=== PATIENT | male | born 1955 | race Caucasian/White ===

== ENCOUNTER → 2020-06-13 11:50 | Outpatient (BNVA) | payer MEDICARE, OTHER, SELFPAY | PROVIDERS: Family Provider Nurse Practitioner Family; PCP Nurse Practitioner Family; Visit Provider Nurse Practitioner Family | DX: Z12.5 Encounter for screening for malignant neoplasm of prostate (principal); Z79.899 Other long term (current) drug therapy; E11.59 Type 2 diabetes mellitus with other circulatory complications; I25.10 Atherosclerotic heart disease of native coronary artery without angina pectoris | CPT/HCPCS: 80053; 82043; 83036; G0103 ==

== ENCOUNTER → 2020-09-01 12:52 | Outpatient (BNVA) | payer MEDICARE, OTHER, SELFPAY | PROVIDERS: Family Provider Nurse Practitioner Family; PCP Nurse Practitioner Family; Visit Provider Dermatology | DX: D48.9 Neoplasm of uncertain behavior, unspecified (principal) | CPT/HCPCS: 88304 ==

== ENCOUNTER → 2020-09-13 11:05 | Outpatient (BNVA) | payer MEDICARE, OTHER, SELFPAY | PROVIDERS: Family Provider Nurse Practitioner Family; PCP Nurse Practitioner Family; Visit Provider Nurse Practitioner Family | DX: Z79.01 Long term (current) use of anticoagulants (principal); I10 Essential (primary) hypertension; E11.9 Type 2 diabetes mellitus without complications | CPT/HCPCS: 80053; 80061; 83036; 85007; 85027 ==

== ENCOUNTER 2020-10-10 09:53 | Outpatient (CLI) | payer MEDICARE, OTHER, SELFPAY ==
--- NOTE | 2020-10-10 10:09 | XR_ITS ---
WS: [id number] LEFT KNEE: 3 VIEW(S) TECHNIQUE: AP, oblique(s) and lateral. HISTORY: M25.562 - Pain in left knee COMPARISON: None available. No fracture or dislocation. Very minimal narrowing of the medial and lateral compartments. No joint effusion. No soft tissue abnormality. XR/XR knee LT 3V* [id number] IMPRESSION: Mild narrowing of the medial and lateral compartments.
== END 2020-10-10 09:54 | disposition home or self-care (01) ==
LOC: RAD 10:01
PROVIDERS: PCP Nurse Practitioner Family; Visit Provider Nurse Practitioner Family
DX: M25.562 Pain in left knee (principal)
CPT/HCPCS: 73562

== ENCOUNTER 2020-10-20 06:40 | Outpatient (CLI) | payer MEDICARE, OTHER, SELFPAY ==
--- NOTE | 2020-10-20 07:15 | MR_ITS ---
WS: [id number] MRI LEFT KNEE HISTORY: M25.562 - Pain in left knee COMPARISON: LEFT knee radiographs 10/10/2020 Anterior cruciate ligament: Increased signal in the distal ligament. Loss of fibers distally and ther e is impingement upon the ACL between the condyle and the tibial plateau. Posterior cruciate ligament: Intact. Medial collateral ligament: Intact. There is increase fluid signal surrounding the MCL. Posterior lateral corner structures: Intact. Medial menisci: Abnormal signal throughout the posterior horn. There is significant fraying along the articular surfaces. There is no full-thickness fluid like signal. There is extrusion of the anterior horn from the joint space. Lateral meniscus: Intrasubstance degeneration with no tears. Extensor mechanism: Distal quadriceps tendon and patellar tendons are intact. Fluid and soft tissue: Small joint effusion. There is a small lobulated Keith's cyst extending over l ength of 3.6 cm. Small loose bodies or debris within the Keith's cyst. Osseous and articular structures: Patellofemoral compartment: Mild narrowing of patellofemoral joint space. No marrow edema. Medial compartment: Mild narrowing medial compartment. Significant loss of cartilage with thinning an d fraying and increased signal. No marrow edema. Lateral compartment: Moderate to severe narrowing of the lateral compartment with loss of cartilage. Complete cartilage defect measuring 5 mm along the tibial plateau. Small fluid collection adjacent to the medial fibular head may be a small ganglion associated with th e popliteus tendon. MR/MR knee LT wo con* [id number] IMPRESSION: 1. Moderate to severe lateral compartment internal derangement and mild event planning intern al derangement of the medial compartment and patellofemoral joint spaces. 2. Incomplete tear distal ACL. 3. Abnormal signal throughout the posterior horn without full-thickness tear. Consistent with intrasubstance degeneration with an extruded anterior horn. 4. Small Keith's cyst and small joint effusion. 5.
== END 2020-10-20 06:41 | disposition home or self-care (01) ==
LOC: RADSHAW 06:46
PROVIDERS: PCP Nurse Practitioner Family; Visit Provider Nurse Practitioner Family
DX: M23.8X2 Other internal derangements of left knee (principal); S83.512A Sprain of anterior cruciate ligament of left knee, initial encounter; X58.XXXA Exposure to other specified factors, initial encounter; M71.22 Synovial cyst of popliteal space [Baker], left knee; M25.462 Effusion, left knee
CPT/HCPCS: 73721

== ENCOUNTER → 2020-11-01 11:15 | Outpatient (BNVA) | payer MEDICARE, OTHER, SELFPAY | PROVIDERS: PCP Nurse Practitioner Family; Referring Provider Nurse Practitioner Family; Visit Provider Orthopaedic Surgery | DX: M17.12 Unilateral primary osteoarthritis, left knee (principal) | CPT/HCPCS: 73560; 73565 ==

== ENCOUNTER → 2020-12-13 09:04 | Outpatient (BNVA) | payer MEDICARE, OTHER, SELFPAY | PROVIDERS: PCP Nurse Practitioner Family; Visit Provider Nurse Practitioner Family | DX: I10 Essential (primary) hypertension (principal); E55.9 Vitamin D deficiency, unspecified; R06.00 Dyspnea, unspecified; E11.59 Type 2 diabetes mellitus with other circulatory complications; I25.10 Atherosclerotic heart disease of native coronary artery without angina pectoris; Z79.01 Long term (current) use of anticoagulants | CPT/HCPCS: 80053; 82306; 83036; 85025 ==

== ENCOUNTER → 2021-03-05 08:49 | Outpatient (BNVA) | payer MEDICARE, OTHER, SELFPAY | PROVIDERS: PCP Nurse Practitioner Family; Visit Provider Nurse Practitioner Family | DX: E11.59 Type 2 diabetes mellitus with other circulatory complications (principal); I25.10 Atherosclerotic heart disease of native coronary artery without angina pectoris; I10 Essential (primary) hypertension | CPT/HCPCS: 83036 ==

== ENCOUNTER → 2021-06-05 08:39 | Outpatient (BNVA) | payer MEDICARE, OTHER, SELFPAY | PROVIDERS: PCP Nurse Practitioner Family; Visit Provider Nurse Practitioner Family | DX: I10 Essential (primary) hypertension (principal); E55.9 Vitamin D deficiency, unspecified; E11.9 Type 2 diabetes mellitus without complications; Z79.01 Long term (current) use of anticoagulants | CPT/HCPCS: 80053; 82043; 82306; 83036; 85025 ==

== ENCOUNTER → 2021-09-05 09:12 | Outpatient (BNVA) | payer MEDICARE, OTHER, SELFPAY | PROVIDERS: PCP Nurse Practitioner Family; Visit Provider Nurse Practitioner Family | DX: E11.9 Type 2 diabetes mellitus without complications (principal); I10 Essential (primary) hypertension; Z79.01 Long term (current) use of anticoagulants; E55.9 Vitamin D deficiency, unspecified | CPT/HCPCS: 80053; 80061; 82306; 83036; 85025 ==

== ENCOUNTER → 2021-10-10 08:45 | Outpatient (BNVA) | payer MEDICARE, OTHER, SELFPAY | PROVIDERS: PCP Nurse Practitioner Family; Referring Provider Internal Medicine Cardiovascular Disease; Visit Provider Internal Medicine Cardiovascular Disease | DX: E11.59 Type 2 diabetes mellitus with other circulatory complications (principal); I25.10 Atherosclerotic heart disease of native coronary artery without angina pectoris; Z20.822 Contact with and (suspected) exposure to COVID-19 | CPT/HCPCS: 80048; 85025; 85610; 87635 ==

== ENCOUNTER 2021-10-16 07:31 | Outpatient (CLI) | payer MEDICARE, OTHER, SELFPAY ==
[2021-10-16] VITALS (15 sets, daily range): BP systolic 146–191; BP diastolic 89–113; PULSE 69–89; RESP 16–25; TEMP 37.4; O2SAT 94–97; BMI 43.6
--- NOTE | 2021-10-16 07:30 | XACV_ITS ---
Ht: 188 cm Wt: 156 kg BSA: 2.92 m2 Gender: Male : 1955 Any Known Allergies: No known allergies Exam Priority: Routine Procedure(s): Procedure Description: Diagnostic procedure Procedure Description: Left Heart Catheterization Procedure Description: Coronary Angiography CORNELKrystyna Jiménez; Diagnostic Cath Status: Elective Diagnostic Findings * Left Main has no disease. * Circumflex has no disease. * Distal Left Anterior Descending: minimal 30% stenosis, GABY: 3 flow. * Distal Right Coronary Artery: mild 40% stenosis, GABY: 3 flow. * Coronary angiography shows right dominance. Conclusions 1. There is mild coronary artery disease with two vessel disease. Recommendations * Continue current medical management and risk factor modification. Pressures Phase:Rest AO : 149 / 83 ( 111 ) @ 7:46:00 AM 152 / 88 ( 117 ) @ 7:54:00 AM 157 / 75 ( 113 ) @ 7:54:00 AM 161 / 86 ( 117 ) @ 7:56:00 AM LV : 147 / 6 / 17 @ 7:53:00 AM 153 / 5 / 18 @ 7:54:00 AM Valves Phase:DefaultPhase AV : 0.0 @ 10:04:49 AM AV Mean Gradient: 0.0 @ 10:04:49 AM Clinical Evaluation EBL: 5mL-10mL Procedural Details Procedure Consent Obtained. Pre-Procedure Time Out. Identified patient by full name and date of as verbalized by the patient/guarantor. Does the consent match the physician's order: Yes. Accurate & Complete Informed Consent: Yes. Inpatient/Outpatient History & Physical on Chart: Yes. If H&P is completed, is and addenduem needed: No; If yes, is the addendum complete: N/A. Visualize and Verify Site with Patient/Guarantor: N/A. Relevant Radiology Images available: N/A. Pre-op teaching completed and patient verbalized understanding. The risks, benefits, and alternatives of sedation and/or procedure were discussed by physician. The patient agrees to continue. Procedure started. Cardiovascular Instability: No. Correct patient, site and procedure confirmed by cath team. PERRLA. Strong, equal hand admissions coordinator bilaterally. Lungs clear x 5 lobes. IV Site on Arrival: 20 gauge in the right anticubital. IV Fluids: 0.9% NaCl at KVO. 0 mL infused prior to labor employment associate. Pre Procedural Pulses: bilateral dorsalis pedis was 3+. Pre Procedural Pulses: bilateral posterior tibial was 3+. Pre Procedural Pulses: bilateral radial was 3+. Oxygen started at 2liters/min via nasal canula. bilateral groins was prepped with chloroprep then draped in the usual sterile fashion. right radial was prepped with chloroprep then draped in the usual sterile fashion. Baseline sample Acquired. HR: 0 BPM. Physician arrived. Equipment: 6F - Radial. Cardiac Cath Pack. ACIST Manifold Kit Model BT 2000. Heparinized Saline (2 units/mL), 1000 mL bag. Kenya Patel RN will be circulating and Edward Kan will be animal technician. Physician scrubbed in. Immediate Pre-Procedure Time Out. Correct Patient: Yes; Correct Procedure: Yes; Correct Site: Yes; Correct Patient Position: Yes; Correct Supplies: Yes; Dried Flammable Prep: Yes; Blood Products Available: N/A;. Lidocaine 1% infiltrated to the right radial. Arterial access obtained. A 5 nigerien Agusto catheter in over wire. Multiple views taken of left coronary artery. Catheter redirected to the RCA. EDP Sample taken: LV 147/6,17; HR: 54 BPM; SpO2: 97%. Pullback taken: LV 153/5,18; AO 152/88(117); Mean: 0mmHg, Peak to Peak: 0mmHg, SEP: 6sec/min; HR: 72 BPM; SpO2: 97%. Catheter removed over the exchange wire. A 5 nigerien JR4 catheter in over wire. Multiple views taken of right coronary artery. Catheter removed over the exchange wire. Physician scrubbed out. A TR Band was successful obtaining hemostatsis at the Right Radial artery insertion site. TR band placed. Hemostasis obtained. Post Procedure: Pulses reassessed and unchanged. PERRLA. Strong, equal hand admissions coordinator bilaterally. No VTE prophylaxis required. Medication's Wasted: Lidocaine 1% = 16 mL. Medication's Wasted: Nitro = 49.8 mg. Medication's Wasted: Heparin = 1000 units. Medication's Wasted: Other = versed 1 mg. Medication's Wasted: Other = fentanyl 50 mcg. Total IV fluids: 43 mL. Contrast type used: Visipaque 320 mgI/mL, 500 mL bottle. Complications: none. Estimated blood loss: 5mL-10mL. Responsiveness - Normal response to verbal stimuli; alert and oriented, PERRLA. Airway - Unaffected, no intervention required; spontaneous ventilation. Circulation: W/N/L, pulses unchanged. Nausea/Vomiting: No. Procedure completed. Post-op diagnosis: non obstructive CAD. Patient transferred by wheelchair to CPRU. Vital chart was stopped. Access Site Site: Right Radial artery Sheath Size: 6 Fr Hemostasis Method: TR Band Hemostasis Success: Successful Procedure Medications Start: 9:31 AM Stop: 9:31 AM Medication: Versed Amount: 1 mg Route: I.V. Start: 9:31 AM Stop: 9:31 AM Medication: Fentanyl Amount: 50 mcg Route: I.V. Start: 9:43 AM Stop: 9:43 AM Medication: Nitrogylcerin Amount: 200 mcg Route: I.A. Start: 9:45 AM Stop: 9:45 AM Medication: Heparin Amount: 5000 units Route: I.V. I, the attending physician, have reviewed and verified all procedure medications. Yes, all medications given per verbal order History/Risk Factors Hypertension: Yes Dyslipidemia: Yes Peripheral Arterial Disease (PAD): No Myocardial Infarction (MN): No Obesity: No Renal Disease: No Prior Interventions PCI: No CABG: No Valve Surgery: No Report Signatures Finalized by Chun Jiménez MD on 10/23/2021 04:59 PM
[2021-10-16] MEDS: diphenhydrAMINE 50 mg Capsule PO (08:09)
[2021-10-16 08:50] LABS: INR 1.04 (0.8-1.2)
--- NOTE | 2021-10-16 09:33 | W.PM.OPSUD ---
Surgery/Procedure H&P Update DATE OF PROCEDURE: October 16, 2021 DATE H&P PERFORMED: 09/18/21 H&P UPDATE INFORMATION: I have reviewed H&P completed within last 30 days, I have examined patient prior to procedure and No changes to prior documentation PREOP DIAGNOSIS: Worsening of chest pain along with shortness of breath suspicious for angin PLANNED PROCEDURE: Operation Date: 10/16/21 08:30 Proposed Procedures p Cardiac Catheterization(Left) - Chun Jiménez MD PATIENT REASSESSED PRIOR TO SEDATION, WITH NO CHANGE NOTED: Yes PHYSICAL EXAM: oriented x 3 and clear to auscultation bilaterally AIRWAY EVAL/ANESTHESIA PLAN: ASA II and Risks, benefits & alternatives of sedation and/or procedure discussed ADDITIONAL INFORMATION: Patient has been explained and alternative for the procedure. Patient has been explained risk for stroke contrast-induced nephropathy temporary permanent dialysis major minor bleed transfusion urgent emergent vascular bypass surgery. He is a candidate for DAPT. He would like to proceed with it
--- NOTE | 2021-10-16 10:16 | SUR.PHASEII ---
POST CATH NOTE Recievied patient from labor mediator. Status post cardiac catheterization via the right radial approach. TR band to access site- free of hematoma formation. Verbal instuction went over with /patient. Verbalized understanding. Will continue to monitor. Vitals and site assessments per flowsheets in PCS.
--- NOTE | 2021-10-16 10:22 | SUR.PHASEII ---
POST OP FLUID RATE MD VERBAL ORDER FOR POST CATH FLUIDS AT 125 ML/HR UNTIL DISCHARGE. Noted.
--- NOTE | 2021-10-16 12:10 | SUR.PHASEII ---
TR BAND DEFLATED Band deflated per protocol. No hematoma formation noted.
== END 2021-10-16 14:03 | disposition home or self-care (01) ==
PROVIDERS: PCP Nurse Practitioner Family; Visit Provider Internal Medicine Cardiovascular Disease
DX: I25.10 Atherosclerotic heart disease of native coronary artery without angina pectoris (principal); Z79.82 Long term (current) use of aspirin; I48.91 Unspecified atrial fibrillation; E11.9 Type 2 diabetes mellitus without complications; I10 Essential (primary) hypertension; E78.5 Hyperlipidemia, unspecified; E55.9 Vitamin D deficiency, unspecified
CPT/HCPCS: 36415; 85610; 93452; C1769; C1887; C1894; J1644; J2250; J3010; J3490; J7030; Q0163; Q9967

== ENCOUNTER → 2022-03-11 08:39 | Outpatient (BNVA) | payer MEDICARE, OTHER, SELFPAY | PROVIDERS: PCP Nurse Practitioner Family; Visit Provider Nurse Practitioner Family | DX: I10 Essential (primary) hypertension (principal); M17.12 Unilateral primary osteoarthritis, left knee; E11.9 Type 2 diabetes mellitus without complications; E78.5 Hyperlipidemia, unspecified; Z79.01 Long term (current) use of anticoagulants | CPT/HCPCS: 80053; 80061; 82043; 83036; 85025 ==

== ENCOUNTER 2022-03-14 09:03 | Outpatient (CLI) | payer MEDICARE, OTHER, SELFPAY ==
--- NOTE | 2022-03-14 09:10 | XR_ITS ---
WS: [id number] XR knee LT 3V* [id number] REASON FOR EXAM: M17.12 - Unilateral primary osteoarthritis, left knee FINDINGS: No fracture or focal bone lesion. Mild narrowing of the medial and lateral knee joint spaces. Mild subchondral sclerosis in the joint s paces with small marginal osteophytes. Mild narrowing of the patellofemoral joint space with subchondral sclerosis of the patella and small marginal osteophytes. XR/XR knee LT 3V* [id number] IMPRESSION: Mild/moderate osteoarthritis of the left knee.
== END 2022-03-14 09:04 | disposition home or self-care (01) ==
LOC: RAD 09:06
PROVIDERS: PCP Nurse Practitioner Family; Visit Provider Nurse Practitioner Family
DX: M17.12 Unilateral primary osteoarthritis, left knee (principal)
CPT/HCPCS: 73562

== ENCOUNTER → 2022-03-20 14:49 | Outpatient (BNVA) | payer MEDICARE, OTHER, SELFPAY | PROVIDERS: PCP Nurse Practitioner Family; Visit Provider Internal Medicine Cardiovascular Disease | DX: I48.19 Other persistent atrial fibrillation (principal); I25.10 Atherosclerotic heart disease of native coronary artery without angina pectoris; E11.59 Type 2 diabetes mellitus with other circulatory complications; I10 Essential (primary) hypertension; E78.49 Other hyperlipidemia; Z79.84 Long term (current) use of oral hypoglycemic drugs | CPT/HCPCS: 99214 ==

== ENCOUNTER → 2022-09-11 14:53 | Outpatient (BNVA) | payer MEDICARE, OTHER, SELFPAY | PROVIDERS: PCP Nurse Practitioner Family; Visit Provider Nurse Practitioner Family | DX: I48.19 Other persistent atrial fibrillation (principal); Z79.01 Long term (current) use of anticoagulants; I10 Essential (primary) hypertension; E11.59 Type 2 diabetes mellitus with other circulatory complications; Z79.84 Long term (current) use of oral hypoglycemic drugs; I25.10 Atherosclerotic heart disease of native coronary artery without angina pectoris | CPT/HCPCS: 99214 ==

== ENCOUNTER → 2022-09-23 11:27 | Outpatient (BNVA) | payer MEDICARE, OTHER, SELFPAY | PROVIDERS: PCP Nurse Practitioner Family; Visit Provider Nurse Practitioner Family | DX: E11.9 Type 2 diabetes mellitus without complications (principal); Z85.828 Personal history of other malignant neoplasm of skin; Z12.5 Encounter for screening for malignant neoplasm of prostate; E55.9 Vitamin D deficiency, unspecified; I10 Essential (primary) hypertension; E78.49 Other hyperlipidemia; Z79.01 Long term (current) use of anticoagulants | CPT/HCPCS: 80053; 80061; 82306; 83036; 85025; G0103 ==

== ENCOUNTER → 2023-03-21 09:50 | Outpatient (BNVA) | payer MEDICARE, OTHER, SELFPAY | PROVIDERS: PCP Nurse Practitioner Family; Visit Provider Internal Medicine Cardiovascular Disease | DX: I48.19 Other persistent atrial fibrillation (principal); Z79.01 Long term (current) use of anticoagulants; I10 Essential (primary) hypertension; E11.59 Type 2 diabetes mellitus with other circulatory complications; Z79.84 Long term (current) use of oral hypoglycemic drugs; I25.10 Atherosclerotic heart disease of native coronary artery without angina pectoris; E78.49 Other hyperlipidemia | CPT/HCPCS: 99214 ==

== ENCOUNTER → 2023-04-07 10:44 | Outpatient (BNVA) | payer MEDICARE, OTHER, SELFPAY | PROVIDERS: PCP Nurse Practitioner Family; Visit Provider Registered Nurse | DX: E11.9 Type 2 diabetes mellitus without complications (principal); I10 Essential (primary) hypertension; Z12.5 Encounter for screening for malignant neoplasm of prostate; Z86.010 Personal history of colon polyps; Z12.11 Encounter for screening for malignant neoplasm of colon | CPT/HCPCS: 80053; 82043; 83036; 85025; G0103 ==

== ENCOUNTER → 2023-04-25 10:01 | Outpatient (BNVA) | payer MEDICARE, OTHER, SELFPAY | PROVIDERS: PCP Nurse Practitioner Family; Visit Provider Dermatology | DX: L57.0 Actinic keratosis (principal); L21.8 Other seborrheic dermatitis; L91.8 Other hypertrophic disorders of the skin; L82.1 Other seborrheic keratosis; L82.0 Inflamed seborrheic keratosis; D18.01 Hemangioma of skin and subcutaneous tissue; Z85.828 Personal history of other malignant neoplasm of skin | CPT/HCPCS: 17000; 17003; 17110; 99213 ==

== ENCOUNTER → 2023-05-27 08:05 | Outpatient (BNVA) | payer MEDICARE, OTHER, SELFPAY | PROVIDERS: PCP Nurse Practitioner Family; Visit Provider Surgery | DX: Z12.11 Encounter for screening for malignant neoplasm of colon (principal) | CPT/HCPCS: 99024; 99203 ==

== ENCOUNTER 2023-07-09 06:39 | Day surgery (SDC) | payer MEDICARE, OTHER, SELFPAY ==
[2023-07-09 06:48] VITALS: BP 178/118; PULSE 95; RESP 18; TEMP 36.2; O2SAT 96
--- NOTE | 2023-07-09 06:59 | ANES.PREANE2 ---
Pre-Anesthetic Assessment Height/Weight: Height 1.88 m Weight 152.861 kg Preop Diagnosis: screening Operation Date: 07/09/23 07:30 Proposed Procedures p [id number] Colonoscopy z12.11(Not Applicable) - Willie Velazquez DO Familial anesthetic complications: none Was Beta Navid taken within 24 hours: N/A Was Clonidine taken within 24 hours: N/A Social No alcohol and No tobacco Airway Submandibular: within normal limits Cervical ROM: within normal limits Mallampati: Class II Dentition: full Pulmonary Exertional Dyspnea and Sleep Apnea CPAP CV/HEM Atrial Fibrillation and Hypertension None reported Hepatic None reported GI Gastroesophageal Reflux Disease Metabolic Diabetes Mellitus (type II), Hyperlipidemia and Morbid Obesity Musc/skel Lower Back Pain Neuropsych None reported Anesthetic Plan ASA status: 3 Anesthesia: MAC Risk of > 500 ml blood loss (7ml/kg in children): No Medications/Allergies Home Medications Medication Instructions Recorded Confirmed Last Taken Type cholecalciferol (vitamin D3) 50 50 mcg PO DAILY 05/30/20 07/04/23 07/08/23 History mcg (2,000 unit) capsule aspirin 81 mg tablet,delayed 81 mg PO DAILY 06/26/20 07/04/23 07/08/23 History release (Adult Low Dose Aspirin) omega-3 fatty acids 1,000 mg 1,000 mg PO BID 06/26/20 07/04/23 07/08/23 History capsule (Fish Oil Concentrate) vitamin B complex (B 1 tab PO DAILY 06/26/20 07/04/23 07/08/23 History Complex-Vitamin B12 tablet) nitroglycerin 0.4 mg sublingual 0.4 mg sublingual Q5M PRN chest 05/29/22 07/09/23 5 Years Ago Rx tablet (Nitrostat) pain #25 tabs ~07/09/18 lisinopril 10 mg tablet 10 mg PO DAILY #90 tabs 03/21/23 07/04/23 07/08/23 Rx glimepiride 2 mg tablet 2 mg PO BID 07/04/23 07/04/23 07/08/23 History irbesartan 300 mg tablet 300 mg PO DAILY 07/04/23 07/04/23 07/08/23 History isosorbide mononitrate 30 mg 30 mg PO DAILY 07/04/23 07/04/23 07/08/23 History tablet,extended release 24 hr metformin 1,000 mg tablet 100 mg PO BID 07/04/23 07/04/23 07/08/23 History pantoprazole 40 mg tablet,delayed 40 mg PO DAILY 07/04/23 07/04/23 07/08/23 History release rivaroxaban 20 mg tablet (Xarelto) 20 mg PO DAILY 07/04/23 07/04/23 07/06/23 History rosuvastatin 40 mg tablet 40 mg PO DAILY 07/04/23 07/04/23 07/08/23 History verapamil 300 mg capsule 24hr 300 mg PO DAILY 07/04/23 07/04/23 07/08/[address],ext[address]release Allergies Allergy/AdvReac Type Severity Reaction Status Date / Time No Known Allergies Allergy Verified 07/09/23 06:55 [facility] Anesthesia Medical History (Updated 05/27/23 @ 08:51 by Willie Velazquez DO) A-fib 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 mellitus Diabetes Diverticulitis History of nonmelanoma skin cancer HTN (hypertension) Hyperlipemia Vitamin D deficiency Surgical History (Updated 05/27/23 @ 08:51 by Willie Velazquez DO) History of esophagogastroduodenoscopy (EGD) Hx of cholecystectomy Hx of colonoscopy 10 years ago, No polyps found at last colonoscopy S/P appendectomy S/P cataract extraction Family History Father Cancer Prostate CA Mother Diabetes Social History Smoking and tobacco status: never smoked Alcohol intake: former Adopted: No Household members: spouse Housing: House Marital status: service: No Current occupational status: retired Data Anesthesia Cardiac Studies: No Data to Display
[2023-07-09] MEDS: sodium chloride 0.9% 1,000 ML 30 ML IV (07:08)
[2023-07-09 07:15] LABS: Glucose Point of Care 140 mg/dL (70-110)
--- NOTE | 2023-07-09 07:19 | PM.HP ---
Providers/Chief Complaint Primary Care Provider: [facility] Chief Complaint: Z12.11 History of Present Illness Ciro Wells is a 68 year old male Medications/Allergies Home Medications Medication Instructions Recorded Confirmed Last Taken Type cholecalciferol (vitamin D3) 50 50 mcg PO DAILY 05/30/20 07/04/23 07/08/23 History mcg (2,000 unit) capsule aspirin 81 mg tablet,delayed 81 mg PO DAILY 06/26/20 07/04/23 07/08/23 History release (Adult Low Dose Aspirin) omega-3 fatty acids 1,000 mg 1,000 mg PO BID 06/26/20 07/04/23 07/08/23 History capsule (Fish Oil Concentrate) vitamin B complex (B 1 tab PO DAILY 06/26/20 07/04/23 07/08/23 History Complex-Vitamin B12 tablet) nitroglycerin 0.4 mg sublingual 0.4 mg sublingual Q5M PRN chest 05/29/22 07/09/23 5 Years Ago Rx tablet (Nitrostat) pain #25 tabs ~07/09/18 lisinopril 10 mg tablet 10 mg PO DAILY #90 tabs 03/21/23 07/04/23 07/08/23 Rx glimepiride 2 mg tablet 2 mg PO BID 07/04/23 07/04/23 07/08/23 History irbesartan 300 mg tablet 300 mg PO DAILY 07/04/23 07/04/23 07/08/23 History isosorbide mononitrate 30 mg 30 mg PO DAILY 07/04/23 07/04/23 07/08/23 History tablet,extended release 24 hr metformin 1,000 mg tablet 100 mg PO BID 07/04/23 07/04/23 07/08/23 History pantoprazole 40 mg tablet,delayed 40 mg PO DAILY 07/04/23 07/04/23 07/08/23 History release rivaroxaban 20 mg tablet (Xarelto) 20 mg PO DAILY 07/04/23 07/04/23 07/06/23 History rosuvastatin 40 mg tablet 40 mg PO DAILY 07/04/23 07/04/23 07/08/23 History verapamil 300 mg capsule 24hr 300 mg PO DAILY 07/04/23 07/04/23 07/08/[address],ext.release Allergies Allergy/AdvReac Type Severity Reaction Status Date / Time No Known Allergies Allergy Verified 07/09/23 06:55 PFSH Acute PFSH: Medical History (Updated 05/27/23 @ 08:51 by Willie Velazquez DO) A-fib 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 mellitus Diabetes Diverticulitis History of nonmelanoma skin cancer HTN (hypertension) Hyperlipemia Vitamin D deficiency Surgical History (Updated 05/27/23 @ 08:51 by Willie Velazquez DO) History of esophagogastroduodenoscopy (EGD) Hx of cholecystectomy Hx of colonoscopy 10 years ago, No polyps found at last colonoscopy S/P appendectomy S/P cataract extraction Family History Father Cancer Prostate CA Mother Diabetes Social History Smoking and tobacco status: never smoked Alcohol intake: former Adopted: No Household members: spouse Housing: House Marital status: service: No Current occupational status: retired Vitals/I&O/Wt Last Vital Signs Temp 97.2 F L 07/09/23 06:48 Pulse 95 07/09/23 06:48 Resp 18 07/09/23 06:48 BP 178/118 07/09/23 06:48 Pulse Ox 96 07/09/23 06:48 O2 Del Method Room Air 07/09/23 06:48 A&P Assessment and plan (1) Encounter for screening for malignant neoplasm of colon: Plan Screening colonoscopy Attestations Medical Necessity Statement*: Home Coding Level of Care Code Acute Code for Chg Fwd Diagnoses Encounter for screening for malignant neoplasm of colon Z12.11
[2023-07-09 07:56] VITALS: BP 132/86; PULSE 86; RESP 12; TEMP 36.6; O2SAT 93
[2023-07-09 08:05] VITALS: BP 150/82; PULSE 82; RESP 14; O2SAT 98
[2023-07-09 08:15] VITALS: BP 160/96; PULSE 87; RESP 16; O2SAT 96
--- NOTE | 2023-07-09 08:30 | ANE.PACU2 ---
Inpatient post-anesthesia follow up: Airway intact: Yes Vital signs: Temperature 98 F Pulse Rate 87 Respiratory Rate 16 Blood Pressure 160/96 Pulse Oximetry 96 Oxygen Delivery Me thod Room Air Oxygen Flow Rate 4 Fraction of Inspir ed Oxygen Hydration adequate: Yes Nausea and vomiting: No Pain level: 1 Mental status: Baseline
== END 2023-07-09 08:30 | disposition home or self-care (01) ==
PROVIDERS: PCP Nurse Practitioner Family; Visit Provider Surgery
PROC: 0DJD8ZZ Inspection of Lower Intestinal Tract, Via Natural or Artificial Opening Endoscopic (ICD-10-PCS; CPT 45378; principal; 2023-07-09 07:30)
DX: Z12.11 Encounter for screening for malignant neoplasm of colon (principal); D12.3 Benign neoplasm of transverse colon; K57.30 Diverticulosis of large intestine without perforation or abscess without bleeding; Z79.82 Long term (current) use of aspirin; I48.91 Unspecified atrial fibrillation; I25.10 Atherosclerotic heart disease of native coronary artery without angina pectoris; E11.9 Type 2 diabetes mellitus without complications; I10 Essential (primary) hypertension; E78.5 Hyperlipidemia, unspecified; E55.9 Vitamin D deficiency, unspecified; G47.30 Sleep apnea, unspecified; K21.9 Gastro-esophageal reflux disease without esophagitis; E66.01 Morbid (severe) obesity due to excess calories; Z68.41 Body mass index [BMI] 40.0-44.9, adult
CPT/HCPCS: 36416; 45385; 82962; 88305; J2704; J7030

== ENCOUNTER → 2023-07-23 13:10 | Outpatient (BNVA) | payer MEDICARE, OTHER, SELFPAY | PROVIDERS: PCP Nurse Practitioner Family; Visit Provider Surgery | DX: Z09 Encounter for follow-up examination after completed treatment for conditions other than malignant neoplasm (principal); D12.6 Benign neoplasm of colon, unspecified; K57.90 Diverticulosis of intestine, part unspecified, without perforation or abscess without bleeding | CPT/HCPCS: 99213 ==

== ENCOUNTER → 2023-08-07 10:03 | Outpatient (BNVA) | payer MEDICARE, OTHER, SELFPAY | PROVIDERS: PCP Nurse Practitioner Family; Visit Provider Nurse Practitioner Family | DX: E11.9 Type 2 diabetes mellitus without complications (principal); E78.49 Other hyperlipidemia; I10 Essential (primary) hypertension; R53.83 Other fatigue | CPT/HCPCS: 80053; 80061; 83036; 85025 ==

== ENCOUNTER → 2023-11-05 09:36 | Outpatient (BNVA) | payer MEDICARE, OTHER, SELFPAY | PROVIDERS: PCP Nurse Practitioner Family; Visit Provider Nurse Practitioner Family | DX: I10 Essential (primary) hypertension (principal); E11.9 Type 2 diabetes mellitus without complications; R53.83 Other fatigue | CPT/HCPCS: 80053; 80061; 83036; 85025 ==

== ENCOUNTER → 2024-01-29 13:25 | Outpatient (BNVA) | payer MEDICARE, OTHER, SELFPAY | PROVIDERS: PCP Nurse Practitioner Family; Visit Provider Internal Medicine | DX: I10 Essential (primary) hypertension (principal); E11.59 Type 2 diabetes mellitus with other circulatory complications; I25.10 Atherosclerotic heart disease of native coronary artery without angina pectoris; I48.19 Other persistent atrial fibrillation; E78.49 Other hyperlipidemia; Z79.84 Long term (current) use of oral hypoglycemic drugs | CPT/HCPCS: 99214 ==

== ENCOUNTER → 2024-02-09 08:26 | Outpatient (BNVA) | payer MEDICARE, OTHER, SELFPAY | PROVIDERS: PCP Nurse Practitioner Family; Visit Provider Nurse Practitioner Family | DX: E11.9 Type 2 diabetes mellitus without complications (principal); R53.83 Other fatigue; R07.89 Other chest pain | CPT/HCPCS: 80061; 83036; 85025; 93005 ==

== ENCOUNTER → 2024-02-11 12:05 | Outpatient (BNVA) | payer MEDICARE, OTHER, SELFPAY | PROVIDERS: PCP Nurse Practitioner Family; Visit Provider Internal Medicine | DX: I10 Essential (primary) hypertension (principal); E11.59 Type 2 diabetes mellitus with other circulatory complications; Z79.84 Long term (current) use of oral hypoglycemic drugs; I25.10 Atherosclerotic heart disease of native coronary artery without angina pectoris; I48.19 Other persistent atrial fibrillation; E78.49 Other hyperlipidemia | CPT/HCPCS: 99214 ==

== ENCOUNTER 2024-02-19 06:50 | Outpatient (CLI) | payer MEDICARE, SELFPAY ==
[2024-02-19 06:58] VITALS: BMI 43.2
--- NOTE | 2024-02-19 07:03 | NMCV_ITS ---
NM rajinder perf SPECT r/s* [id number] Ciro Wells Age: 69 Gender: M : 1955 Exam Date: 02/19/2024 08:44 Ordering Phys: Hoang Johnston M.D ([email or web address]) Technologist: LOVE Parra Exam Location: [facility] Indications: SHORTNESS OF BREATH CHEST PAIN STRESS TEST Please see separate stress test report in [facility] for full findings IMAGE PROTOCOL Rest/Stress 1 Lexiscan Day Radiopharmaceutical Dose (mCi) Administration Site Administered by Rest: Tc-99m 10.9 IV LOVE Crocker Sestamibi Stress:Tc-99m 33.0 IV LOVE Crocker Sestamibi Rest: 19-Feb-2024 60 Discovery 630 Stress: 19-Feb-2024 30 Discovery 630 0.4mg Lexiscan. Images obtained in supine and prone position. SPECT RESULTS Technical Quality: Excellent Raw Data Analysis: Normal Image Corrections: No attenuation or motion correction applied Summed Stress Score: 11 Summed Rest Score: 5 Summed Difference Score: 6 PERFUSION FINDINGS There is a partially reversible, medium sized perfusion defect noted in apical and apical anterior guerrero. This is consistent with small sized area of prior infarct with medium sized area of nazanin-infarct ischemia. Medium to large sized areas of mostly fixed perfusion defect is seen in the inferolateral and inferior guerrero. This is consistent with moderate to large sized area of prior infarct with minimal nazanin-infarct ischemia and RCA and left circumflex artery territories FUNCTIONAL RESULTS (calculated via Gated SPECT) Stress Image LV EF (%): 63 Stress EDV (mL):188 TID: 1.06 Stress ESV (mL):69 FUNCTIONAL FINDINGS: There is normal left ventricular systolic function. IMPRESSIONS 1. Small area of prior infarct with medium sized area nazanin-infarct ischemia seen in the LAD territory. 2. Large sized area of medium to large sized areas of prior infarct with minimal nazanin-infarct ischemia seen in RCA and left circumflex artery territories. 3. LV systolic function is normal. Hoang Johnston MD (Electronically Signed) Final Date: 19 February 2024 11:42 S
--- NOTE | 2024-02-19 07:03 | ECG_ITS ---
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 Interpretive Statements NAME OF STUDY: LEXISCAN SESTAMIBI STRESS TEST INDICATION: [Chest Pain; Shortness of breath] Procedure: At the baseline, the blood pressure was 161/91 mmHg with a heart rate of 64 bpm. The electrocardiogram showed atrial fibrillation with no significant ST-T wave changes. The Lexiscan was infused over a period of 20 seconds. A total of 0.4 mg of Lexiscan was infused. The stress phase was continued for a total of 5 minutes. Heart rate was at the end of stress phase was 65 bpm and a blood pressure of 147/82 mmHg. The EKG at the peak infusion revealed atrial fibrillation with no significant ST-T wave changes. Sestamibi was injected 20 seconds after the Lexiscan infusion. Blood pressure at the end of recovery phase was 139/75 mmHg with a heart rate of 70 bpm. Conclusion: 1. Normal EKG response to Lexiscan infusion 2. No Lexiscan induced chest pain or cardiac arrhythmia. 3. Normal blood pressure and heart rate response. 4. Sestamibi/sestamibi perfusion scan pending; see separate report. Electronically Signed On 02-19-2024 13:23:51 CDT by Hoang Johnston M.D. [email or web address]
--- NOTE | 2024-02-19 07:15 | USCV_ITS ---
Ciro Wells Age: 69 Gender: M : 1955 Exam Date: 02/19/2024 07:01 Ordering Phys: Hoang Johnston M.D ([email or web address]) Technologist: Exam Location: [facility] [place] Indication: chest pain BP: 126 / 70 HR: 89 Rhythm: Sinus Technical Quality: Adequate MEASUREMENTS (Male / Female) Normal Values 2D ECHO LV Diastolic Diameter PLAX 5.4 cm 4.2 - 5.9 / 3.9 - 5.3 cm IVS Diastolic Thickness 1.4 cm 0.6 - 1.0 / 0.6 - 0.9 cm IVS Systolic Thickness 1.8 cm LVPW Diastolic Thickness 1.4 cm 0.6 - 1.0 / 0.6 - 0.9 cm LVPW Systolic Thickness 1.4 cm LVOT Diameter 2.0 cm LV Ejection Fraction 2D Teich 62.8 % LV Ejection Fraction MOD 2C 56.3 % LV Ejection Fraction 2C AL 54.0 % LA Diameter 5.0 cm RA Systolic Volume 4C AL 138.4 ml RA Systolic Volume 4C MOD 130.7 ml LA Sys Volume AL 161.6 cm cubed LA Sys Volume Index AL 55.6 cm cubed/m squared M-MODE LA Ao Ratio MM 1.3 MV E Point Septal Separation 1.5 cm AV Cusp Separation MM 2.6 cm DOPPLER AV Peak Velocity 120.0 cm/s LVOT Peak Velocity 83.0 cm/s AV Area Cont Eq vti 2.6 cm squared AV Area Cont Eq pk 2.2 cm squared MV Peak Velocity 110.0 cm/s MV Area PHT 5.1 cm squared Mitral E to A Ratio 4.2 TV Peak Velocity 221.0 cm/s TR Peak Velocity 252.0 cm/s TR Peak Gradient 25.4 mmHg TV Peak E Velocity 105.0 cm/s PV Peak Velocity 104.0 cm/s FINDINGS Left Ventricle Left ventricle is normal in size. LV systolic function is normal with EF 55 to 60%. No regional wall motion abnormalities are seen. Right Ventricle Normal in size and function Right Atrium Dilated. Left Atrium Dilated Mitral Valve Mild mitral annular calcification. Mild mitral regurgitation. Aortic Valve Structurally normal aortic valve. No significant stenosis or regurgitation. Tricuspid Valve Trace tricuspid regurgitation. Insufficient TR jet to evaluate RVSP. Pulmonic Valve Not well-visualized. Pericardium Normal Aorta Normal in size. IVC Appears to be normal CONCLUSIONS LV systolic function is normal with EF of 55 to 60%. Biatrial enlargement Mild mitral regurgitation Trace tricuspid regurgitation. Hoang Johnston MD (Electronically Signed) Final Date: 06 Mar 2024 20:16 S
[2024-02-19] MEDS: regadenoson 0.4 Mg/5 ml Syringe 0.400000000000000022 MG IVP (09:45)
[2024-02-19 09:55] VITALS: BP 137/72; PULSE 72
== END 2024-02-19 06:51 | disposition home or self-care (01) ==
LOC: RAD 06:50
PROVIDERS: PCP Nurse Practitioner Family; Visit Provider Internal Medicine
DX: R07.9 Chest pain, unspecified (principal); R06.02 Shortness of breath
CPT/HCPCS: 36415; 78452; 93017; 93306; 96374; A9500; J2785

== ENCOUNTER 2024-03-08 05:50 | Outpatient (CLI) | payer MEDICARE, OTHER, SELFPAY ==
[2024-03-08] VITALS (29 sets, daily range): BP systolic 121–181; BP diastolic 67–113; PULSE 52–81; RESP 13–23; TEMP 36.3–36.8; O2SAT 94–97; BMI 43.2
--- NOTE | 2024-03-08 06:00 | XACV_ITS ---
Exam Room: 2 Ht: 188 cm Wt: 153 kg BSA: 2.89 m2 Gender: Male : 1955 Any Known Allergies: No known allergies Exam Priority: Routine Procedure(s): Procedure Description: Diagnostic procedure Procedure Description: Coronary Angiography Diagnostic Cath Status: Elective Diagnostic Findings * INDICATION: Chest pain/abnormal stress test. * Left Main has no significant disease. * Left Anterior Descending has mild luminal irregularities. * Right Coronary Artery has mild luminal irregularities. * Proximal Circumflex: obstructive 60-70% stenosis, GABY: 3 flow. * Coronary angiography shows right dominance. Conclusions 1. Moderate to severe ostial left circumflex artery stenosis. 2. Aggressive, optimal medical therapy. 3. If has significant, worsening chest pain, can consider PCI however given location of the disease, may compromise flow in LAD. . Recommendations * Aggressive risk factor control. * Outpatient cardiology follow up in 2-4 weeks. Interventional RX Recommendation: medical therapy and/or counseling Diagnostic RX Recommendation: medical therapy and/or counseling Pressures Phase:Rest AO : 122 / 74 ( 97 ) @ 8:48:00 AM 133 / 83 ( 108 ) @ 8:53:00 AM 130 / 76 ( 101 ) @ 8:57:00 AM 125 / 72 ( 95 ) @ 8:59:00 AM Clinical Evaluation EBL: 5mL-10mL Procedural Details Procedure Consent Obtained. Pre-Procedure Time Out. Identified patient by full name and date of as verbalized by the patient/guarantor. Does the consent match the physician's order: Yes. Accurate & Complete Informed Consent: Yes. Inpatient/Outpatient History & Physical on Chart: Yes. If H&P is completed, is and addenduem needed: No; If yes, is the addendum complete: N/A. Visualize and Verify Site with Patient/Guarantor: N/A. Relevant Radiology Images available: Yes. Pre-op teaching completed and patient verbalized understanding. The risks, benefits, and alternatives of sedation and/or procedure were discussed by physician. The patient agrees to continue. Procedure started. Physician arrived. Current Diagnosis : Chest Pain. Vital chart was stopped. [facility] Clinical Fraility Score: 3: Managing Well. 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 Chest Pain Symptom Assessment: Typical Angina Symptoms. Correct patient, site and procedure confirmed by cath team. Current diagnosis: Chest Pain. PERRLA. Strong, equal hand project management advisor bilaterally. Lungs clear x 5 lobes. IV Site on Arrival: 20 gauge in the left anticubital. IV Fluids: 0.9% NaCl at KVO. 0 mL infused prior to label stamper. Pre Procedural Pulses: bilateral dorsalis pedis was 2+. Pre Procedural Pulses: bilateral posterior tibial was 2+. Pre Procedural Pulses: bilateral radial was 2+. Oxygen started at 2liters/min via nasal canula. right groin was prepped with chloroprep then draped in the usual sterile fashion. right radial was prepped with chloroprep then draped in the usual sterile fashion. Baseline sample Acquired. HR: 64 BPM. Physician scrubbed in. Immediate Pre-Procedure Time Out. Correct Patient: Yes; Correct Procedure: Yes; Correct Site: Yes; Correct Patient Position: Yes; Correct Supplies: Yes; Dried Flammable Prep: Yes; Blood Products Available: N/A;. Lidocaine 1% infiltrated to the right radial. Arterial access obtained. A 5 [place] TIG catheter in over wire. Catheter removed over the exchange wire. A 5 [place] JR4 catheter in over wire. Wire out. Glidewire inserted and advanced through the catheter. Multiple views taken of right coronary artery. Catheter removed over the exchange wire. A 5 [place] JL4 catheter in over wire. Multiple views taken of left coronary artery. Catheter removed over the exchange wire. A 5 [place] TIG catheter in over wire. Physician review of cine films. Catheter removed over the exchange wire. A TR Band was successful obtaining hemostatsis at the Right Radial artery insertion site. Post Procedure: Pulses reassessed and unchanged. PERRLA. Strong, equal hand project management advisor bilaterally. No VTE prophylaxis required. Medication's Wasted: Nitro = 49.8 mg. Medication's Wasted: Lidocaine 1% = 17 mL. Total IV fluids: 50 mL. Complications: None. Estimated blood loss: 5mL-10mL. Responsiveness - Normal response to verbal stimuli; alert and oriented, PERRLA. Vital chart was stopped. Airway - Unaffected, no intervention required; spontaneous ventilation. Circulation: W/N/L, pulses unchanged. Nausea/Vomiting: No. Procedure completed. Patient transferred by wheelchair to CPRU. Access Site Site: Right Radial artery Sheath Size: 6 Fr Hemostasis Method: TR Band Hemostasis Success: Successful Procedure Medications Start: 7:26 AM Stop: 7:26 AM Medication: Versed Amount: 1 mg Route: I.V. Start: 7:28 AM Stop: 7:28 AM Medication: Fentanyl Amount: 50 mcg Route: I.V. Start: 7:36 AM Stop: 7:36 AM Medication: Versed Amount: 1 mg Route: I.V. Start: 7:38 AM Stop: 7:38 AM Medication: Nitrogylcerin Amount: 200 mcg Route: I.A. Start: 7:40 AM Stop: 7:40 AM Medication: Fentanyl Amount: 25 mcg Route: I.V. Start: 7:42 AM Stop: 7:42 AM Medication: Heparin Amount: 5000 units Route: I.V. Start: 7:55 AM Stop: 7:55 AM Medication: Heparin Amount: 1000 units Route: I.V. Start: 8:02 AM Stop: 8:02 AM Medication: Fentanyl Amount: 25 mcg Route: I.V. I, the attending physician, have reviewed and verified all procedure medications. Yes, all medications given per verbal order History/Risk Factors Hypertension: Yes Dyslipidemia: Yes Peripheral Arterial Disease (PAD): No Myocardial Infarction ([place]): No Obesity: No Renal Disease: No Tobacco Use: Never Prior Interventions PCI: No CABG: No Valve Surgery: No Report Signatures Finalized by Hoang Johnston MD on 03/13/2024 01:28 PM
[2024-03-08 06:24] LABS: Basophils % 0.4 %; Eosinophils # 0.1 10^3/uL (0.0-0.8); Eosinophils % 1.4 %; Hematocrit 42.2 % (37-53); Lymphocytes # 2.8 10^3/uL (0.8-4.8); Lymphocytes % 29.6 %; Mean Corpuscular HGB Conc 33.2 g/dL (30-55); Mean Corpuscular Volume 90.4 fl (82-101); Mean Platelet Volume 10.9 fL (7.4-10.4); Monocytes # 0.8 10^3/uL (0.2-0.9); Monocytes % 8.5 %; Neutrophils # 5.72 10^3/uL (1.8-7.7); Neutrophils % 59.9 %; Nucleated Red Blood Cells % 0 %; Platelet Count 225 10^3/cmm (157-399); Red Blood Count 4.67 10^6/uL (3.85-5.65); Red Cell Distribution Width 12.7 % (12.1-15.1); White Blood Count 9.55 10^3/uL (3.29-11.43)
[2024-03-08 06:42] LABS: Anion Gap 15.9 (5-19); Blood Urea Nitrogen 15 mg/dL (8-23); Calcium 9.3 mg/dL (8.5-10.5); Carbon Dioxide 28 mmol/L (22-29); Chloride 101 mmol/L (98-107); Glomerular Filtration Rate 83.4 mL/min (90-130); Glucose 156 mg/dL (65-115); Osmolality Calculated 296 mOsm/kg (285-295); Potassium 3.9 mmol/L (3.5-5.1); Sodium 141 mmol/L (136-145)
[2024-03-08] MEDS: diphenhydrAMINE 50 mg Capsule PO (06:49)
--- NOTE | 2024-03-08 07:30 | W.PM.OPSUD ---
Surgery/Procedure H&P Update DATE OF PROCEDURE: March 08, 2024 DATE H&P PERFORMED: 02/11/24 H&P UPDATE INFORMATION: I have reviewed H&P completed within last 30 days, I have examined patient prior to procedure and No changes to prior documentation PREOP DIAGNOSIS: Chest pain/abnormal stress test PRIMARY INDICATION FOR PROCEDURE: Chest pain/abnormal stress test PLANNED PROCEDURE: Operation Date: 03/08/24 07:00 Proposed Procedures p Cardiac Catheterization 67165,R94.39(Left) - Hoang Johnston M.D Possible percutaneous coronary intervention PATIENT REASSESSED PRIOR TO SEDATION, WITH NO CHANGE NOTED: Yes PHYSICAL EXAM: alert, oriented x 3, clear to auscultation bilaterally and regular rate & rhythm AIRWAY EVAL/ANESTHESIA PLAN: normal airway, ASA III, Local Anesthesia, Risks, benefits & alternatives of sedation and/or procedure discussed and Patient agrees to continue as planned ADDITIONAL INFORMATION: Moderate sedation
--- NOTE | 2024-03-08 09:01 | SUR.PHASEI ---
POST CATH NOTE Received patient from crime lab technician. Status post cardiac catheterization via the right radial approach. TR BAND in place. Site is hemostatic. Family now at bedside as well. Verbal post cath instructions given to the patient and the family. They understood well. Vitals and assessments per flowsheet. Call light in reach. Informed to call for needs.
[2024-03-08 12:48] LABS: Glucose Point of Care 183 mg/dL (70-110)
== END 2024-03-08 14:45 | disposition home or self-care (01) ==
LOC: CCL 06:08 → CSU 08:56
PROVIDERS: PCP Nurse Practitioner Family; Visit Provider Internal Medicine
DX: I25.10 Atherosclerotic heart disease of native coronary artery without angina pectoris (principal); I10 Essential (primary) hypertension; E78.5 Hyperlipidemia, unspecified
CPT/HCPCS: 36415; 36416; 80048; 82962; 85025; 93454; 96374; 96375; 99152; 99153; C1769; C1887; C1894; J1644; J2250; J3010; J3490; J7030; Q0163; Q9967

== ENCOUNTER → 2024-03-18 13:48 | Outpatient (BNVA) | payer MEDICARE, OTHER, SELFPAY | PROVIDERS: PCP Nurse Practitioner Family; Visit Provider Nurse Practitioner Family | DX: E11.59 Type 2 diabetes mellitus with other circulatory complications (principal); I25.10 Atherosclerotic heart disease of native coronary artery without angina pectoris; Z79.84 Long term (current) use of oral hypoglycemic drugs; I10 Essential (primary) hypertension | CPT/HCPCS: 80048; 99214 ==

== ENCOUNTER 2024-05-03 13:15 | Outpatient (CLI) | payer MEDICARE, OTHER, SELFPAY | END 2024-05-03 13:16 | disposition home or self-care (01) | LOC: SLEEP 05-04 16:04 | PROVIDERS: PCP Nurse Practitioner Family; Visit Provider Nurse Practitioner Family | DX: G47.33 Obstructive sleep apnea (adult) (pediatric) (principal) | CPT/HCPCS: 94762 ==

== ENCOUNTER → 2024-05-04 14:55 | Outpatient (BNVA) | payer MEDICARE, OTHER, SELFPAY | PROVIDERS: PCP Nurse Practitioner Family; Visit Provider Nurse Practitioner Family | DX: L57.0 Actinic keratosis (principal); Z85.828 Personal history of other malignant neoplasm of skin; L21.8 Other seborrheic dermatitis; L91.8 Other hypertrophic disorders of the skin; D18.01 Hemangioma of skin and subcutaneous tissue | CPT/HCPCS: 17000; 17110; 99213 ==

== ENCOUNTER → 2024-05-11 10:10 | Outpatient (BNVA) | payer MEDICARE, OTHER, SELFPAY | PROVIDERS: PCP Nurse Practitioner Family; Visit Provider Nurse Practitioner Family | DX: I10 Essential (primary) hypertension (principal); E11.9 Type 2 diabetes mellitus without complications | CPT/HCPCS: 80053; 80061; 83036 ==

== ENCOUNTER → 2024-08-10 09:03 | Outpatient (BNVA) | payer MEDICARE, OTHER, SELFPAY | PROVIDERS: PCP Nurse Practitioner Family; Visit Provider Nurse Practitioner Family | DX: I10 Essential (primary) hypertension (principal); E11.9 Type 2 diabetes mellitus without complications; R53.83 Other fatigue; E55.9 Vitamin D deficiency, unspecified | CPT/HCPCS: 80053; 80061; 82306; 83036; 85025 ==

== ENCOUNTER → 2024-08-12 12:33 | Outpatient (BNVA) | payer MEDICARE, OTHER, SELFPAY | PROVIDERS: PCP Nurse Practitioner Family; Visit Provider Internal Medicine | DX: I10 Essential (primary) hypertension (principal); E11.59 Type 2 diabetes mellitus with other circulatory complications; Z79.84 Long term (current) use of oral hypoglycemic drugs; I25.10 Atherosclerotic heart disease of native coronary artery without angina pectoris; I48.19 Other persistent atrial fibrillation; E78.49 Other hyperlipidemia; Z79.01 Long term (current) use of anticoagulants | CPT/HCPCS: 99214 ==

== ENCOUNTER → 2024-11-09 09:48 | Outpatient (BNVA) | payer MEDICARE, OTHER, SELFPAY | PROVIDERS: PCP Nurse Practitioner Family; Visit Provider Nurse Practitioner Family | DX: I10 Essential (primary) hypertension (principal); E55.9 Vitamin D deficiency, unspecified; E11.9 Type 2 diabetes mellitus without complications | CPT/HCPCS: 80053; 80061; 82306; 83036 ==

== ENCOUNTER → 2025-02-07 09:27 | Outpatient (BNVA) | payer MEDICARE, OTHER, SELFPAY | PROVIDERS: PCP Nurse Practitioner Family; Visit Provider Nurse Practitioner Family | DX: E11.9 Type 2 diabetes mellitus without complications (principal) | CPT/HCPCS: 83036 ==

== ENCOUNTER → 2025-02-10 10:33 | Outpatient (BNVA) | payer MEDICARE, OTHER, SELFPAY | PROVIDERS: PCP Nurse Practitioner Family; Visit Provider Nurse Practitioner Family | DX: I48.19 Other persistent atrial fibrillation (principal); Z79.01 Long term (current) use of anticoagulants; Z79.82 Long term (current) use of aspirin; I25.10 Atherosclerotic heart disease of native coronary artery without angina pectoris; I10 Essential (primary) hypertension; E78.5 Hyperlipidemia, unspecified; G47.33 Obstructive sleep apnea (adult) (pediatric); E11.9 Type 2 diabetes mellitus without complications; Z79.84 Long term (current) use of oral hypoglycemic drugs | CPT/HCPCS: 99214 ==

== ENCOUNTER → 2025-04-25 08:54 | Outpatient (BNVA) | payer MEDICARE, OTHER, SELFPAY | PROVIDERS: PCP Nurse Practitioner Family; Visit Provider Nurse Practitioner Family | DX: Z12.5 Encounter for screening for malignant neoplasm of prostate (principal); I10 Essential (primary) hypertension; E11.9 Type 2 diabetes mellitus without complications; R53.83 Other fatigue | CPT/HCPCS: 80053; 80061; 83036; 85025; G0103 ==

== ENCOUNTER → 2025-05-04 10:39 | Outpatient (BNVA) | payer MEDICARE, OTHER, SELFPAY | PROVIDERS: PCP Nurse Practitioner Family; Visit Provider Nurse Practitioner Family | DX: L21.8 Other seborrheic dermatitis (principal); L81.4 Other melanin hyperpigmentation; L82.1 Other seborrheic keratosis; L57.8 Other skin changes due to chronic exposure to nonionizing radiation; Z08 Encounter for follow-up examination after completed treatment for malignant neoplasm; Z85.828 Personal history of other malignant neoplasm of skin; L57.0 Actinic keratosis | CPT/HCPCS: 17000; 99214 ==

== ENCOUNTER → 2025-07-26 09:27 | Outpatient (BNVA) | payer MEDICARE, OTHER, SELFPAY | PROVIDERS: PCP Nurse Practitioner Family; Visit Provider Nurse Practitioner Family | DX: I10 Essential (primary) hypertension (principal); R53.83 Other fatigue; E11.9 Type 2 diabetes mellitus without complications | CPT/HCPCS: 80053; 80061; 83036; 85025 ==

== ENCOUNTER → 2025-08-15 13:53 | Outpatient (BNVA) | payer MEDICARE, OTHER, SELFPAY | PROVIDERS: PCP Nurse Practitioner Family; Visit Provider Internal Medicine | DX: I10 Essential (primary) hypertension (principal); E11.59 Type 2 diabetes mellitus with other circulatory complications; I25.10 Atherosclerotic heart disease of native coronary artery without angina pectoris; I48.19 Other persistent atrial fibrillation; E78.49 Other hyperlipidemia; Z79.01 Long term (current) use of anticoagulants; Z79.84 Long term (current) use of oral hypoglycemic drugs | CPT/HCPCS: 99214 ==